=== PATIENT | male | born 1995 | race Caucasian/White ===

== ENCOUNTER 2024-12-26 12:32 | Day surgery (SDC) | payer BC, SELFPAY ==
[2024-12-26] VITALS (7 sets, daily range): BP systolic 129–177; BP diastolic 68–100; PULSE 73–115; RESP 16–24; TEMP 36.3–36.7; O2SAT 93–98; BMI 35.9
--- NOTE | 2024-12-26 12:36 | ECG_ITS ---
Test Reason : CHECH QTC Blood Pressure : */* mmHG Vent. Rate : 89 BPM Atrial Rate : 89 BPM P-R Int : 136 ms QRS Dur : 98 ms QT Int : 350 ms P-R-T Axes : 34 47 -5 degrees QTcB Int : 425 ms Normal sinus rhythm with sinus arrhythmia Incomplete right bundle branch block T wave abnormality, consider inferior ischemia Abnormal ECG No previous ECGs available Referred By: Luis Antonio Ndiaye Electronically Signed By: Russ Gao
--- NOTE | 2024-12-26 12:36 | ED.GENADULT ---
HPI - General Adult General Chief complaint: General Medical Stated complaint: Food Stuck in Esophagus Time Seen by Provider: 12/26/24 13:02 Source: patient, RN notes reviewed and old records reviewed Mode of arrival: ambulatory Limitations: no limitations History of Present Illness ED Provider: Eliazar [facility] narrative: Patient is a 29-year-old male presenting to the emergency department with complaint of foreign body to esophagus. States he was eating steak approximately 30 minutes prior to arrival when a piece was stuck in his throat. He has been unable to swallow any food or drink since that time, is unable to manage his saliva. He is currently spitting into a bag. Denies any history of similar symptoms. Denies any vomiting. Denies shortness of breath or difficulty breathing. When asked where he feels discomfort, patient points to upper chest area. MD complaint: esophageal foreign body Onset (ago): minute(s) Related Data Allergies Allergy/AdvReac Type Severity Reaction Status Date / Time peas Allergy Unknown Verified 12/26/24 12:36 Review of Systems Review of Systems: As per HPI Yes all other systems are reviewed and are negative Constitutional: Constitutional: Reports as per HPI [facility] Social History Social History Advance Directives: No Advance Directives Information Provided: No Do you have a plan to hurt others: No Plan Physical Exam ED Vital Signs: Vital Signs - 24 hr 12/26/24 12:34 12/26/24 14:22 12/26/24 14:24 Temperature 98 F 98.1 F Pulse Rate 115 H 88 88 Respiratory Rate 19 16 Blood Pressure 177/100 H 136/78 136/78 Pulse Oximetry 98 97 Oxygen Delivery Method Room Air Room Air 12/26/24 14:40 12/26/24 16:02 Temperature 97.7 F Pulse Rate 73 102 H Respiratory Rate 16 24 H Blood Pressure 133/82 129/78 Pulse Oximetry 95 93 Oxygen Delivery Method Room Air Room Air BMI result Body Mass Index 35.9 Vital signs have been reviewed and appear to be correct. Blood pressure elevated. Heart rate mildly tachycardic. Respiratory rate normal. Temperature normal. Oxygen saturation normal. Const General: cooperative, healthy appearing, alert and awake Orientation/consciousness: oriented to person, oriented to place, oriented to time and patient oriented x3 Limitations: no limitations HENMT Head: Yes normocephalic and Yes atraumatic Ears: external ears normal General nose exam: Normal external nose present Face and sinus: Yes face symmetric Mouth: Normal oral and palatal mucosa present, lip normal, tongue normal, oropharynx normal, moist mucous membranes and other (unable to swallow saliva, spitting into bag) Throat: Yes posterior oropharynx normal and Yes uvula midline Eyes Pupils: Equal, round and reactive pupils present Neck Neck: Yes normal visual inspection and Yes supple Resp Effort & Inspection: normal respiratory effort and able to speak in complete sentences Auscultation: clear to auscultation bilaterally Cardio Rate: regular rate Rhythm: regular rhythm Heart sounds: S1 normal heart sound present and S2 normal heart sound present GI Palpation (GI): Soft to palpation and nontender Auscultation: normoactive bowel sounds General: Yes no CVA tenderness Back/Spine/Pelvis Back: no CVA tenderness Skin General skin exam: elasticity normal and turgor normal Neuro General: oriented to person, oriented to place, oriented to time, patient oriented x3, moves all extremities, no focal motor deficits and CN's II-XI intact bilaterally Cranial nerves: Yes Equal, round and reactive pupils present Cognition (Neuro): normal cognition Extrem General: Yes full ROM, Yes no pedal edema and Yes no calf tenderness Psych Mental Status: mental status grossly normal Affect: normal affect Thought process: Normal thought process present Course Course Course Narrative: RME, this is a rapid medical exam performed by Ruben Ndiaye please refer to primary provider for complete H&P- 29-year-old male presents for evaluation of a food bolus. He reports he was chewing a piece of steak and feel it slowly got stuck. He is unable to eat or drink anything, he is spitting out his saliva because he can not swallow his secretions. He is mildly hypotensive plan for basic labs and glucagon administration Reevaluation(s) Reevaluation #1: Case discussed with Dr. Pickens, she recommends SL NTG if glucagon unsuccessful. Time: 13:34 Reevaluation #2: No change after glucagon or nitroglycerin. Dr. Pickens updated. Time: 14:18 Reevaluation #3: Patient to OR at this time. Time: 15:29 Medications Administered Discontinued Medications Generic Name Dose Route Start Last Admin Trade Name Freq PRN Reason Stop Dose Admin Glucagon 1 mg 12/26/24 12:36 12/26/24 13:33 Glucagon Hcl 1 Mg Vial IVPUSH 12/26/24 12:37 1 mg ONCE ONE Administration Nitroglycerin 0.4 mg 12/26/24 13:57 12/26/24 14:24 Nitroglycerin 0.4 Mg Tab.Subl SUBLINGUAL 12/26/24 13:58 0.4 mg ONCE ONE Administration Medical Decision Making Medical Decision Making [facility] Narrative: Patient is a 29-year-old male presenting to the emergency department with complaint of foreign body to esophagus. On exam patient is awake, A+Ox3, tachycardic, BP elevated, VS otherwise WNL, afebrile, normal neurological exam without focal deficits, physical exam findings as above. Given reported symptoms and physical exam findings, initial differential includes but is not limited to esophageal food bolus impaction, esophageal stricture. Labs unremarkable. Patient medicated with glucagon ordered by triage provider with little effect. See course for remainder of clinical decision making. Differential Diagnosis Differential Diagnoses: The differential diagnosis associated with the presentation includes As per [facility] Admission/Observation Consideration of admission/observation: Escalation of care including admission/observation considered Patient would have been admitted to the hospital had their work up had any findings where hospital admission was appropriate and their clinical presentation warranted hospital admission. Consult Healthcare Provider Management of the patient was discussed with: [employer] Operator (Dr. Pickens) Lab Data [facility] Lab Attestation statement: I reviewed the patient's lab results. As per [facility] 12/26/24 13:22 12/26/24 13:22 Labs: Lab Results 12/26/24 12/26/24 Range/Units 13:22 14:26 WBC 6.8 (4.8-10.8) X10*3/uL RBC 5.25 (4.60-5.80) X10*6/uL Hgb 16.5 (14.0-18.0) g/dl Hct 45.1 (42.0-52.0) % MCV 85.9 (80.0-98.0) fL MCH 31.4 (27.0-33.0) pg MCHC 36.6 H (31.0-36.0) g/dl RDW 11.9 (11.0-16.0) % Plt Count 251 (160-400) X10*3/uL MPV 10.2 (9.4-12.4) fL Immature Gran % (Auto) 0.4 (0.0-0.4) % Neut % (Auto) 64.6 (45-73) % Lymph % (Auto) 22.2 (20-40) % [place] % (Auto) 8.4 (2-11) % Eos % (Auto) 3.7 (0-4) % Baso % (Auto) 0.7 (0-2) % Lymph # (Auto) 1.5 (1.2-4.9) X10*3/uL [place] # (Auto) 0.6 (0.1-1.2) X10*3/uL Eos # (Auto) 0.3 (0.0-0.4) X10*3/uL Baso # (Auto) 0.1 (0.0-0.2) X10*3/uL Abs Immat Gran (auto) 0.03 (0.00-0.03) X10*3/uL Absolute Neuts (auto) 4.4 (2.0-8.3) x10*3/uL Absolute Nucleated RBC 0.000 (0.0-0.012) X10*3/uL Nucleated RBC % (auto) 0.0 (0.0-0.2) /100WBC PT 11.3 (10.9-12.4) SEC INR 1.0 (0.9-1.1) Sodium 142 (135-145) mmol/L Potassium 4.0 (3.3-5.1) mmol/L Chloride 107 (96-108) mmol/L Carbon Dioxide 24 (22-29) mmol/L Anion Gap 15 (12-20) BUN 11 (9-16) mg/dL Creatinine 0.80 (0.5-1.4) mg/dL Estim Creat Clear Calc 174.9 Estimated GFR > 60 Random Glucose 96 (60-115) mg/dL Calcium 9.8 (8.4-10.2) mg/dL Total Bilirubin 0.7 (0.0-1.0) mg/dL AST 42 H (5-37) U/L ALT 73 H (0-40) U/L Alkaline Phosphatase 80 (39-117) U/L Total Protein 7.8 (6.5-8.0) g/dL Albumin 5.2 H (3.5-5.0) g/dL Lipase 10 (8-78) U/L External Record Review External record reviewed: Inpatient record, Office record and Outpatient record Critical Care Time Critical Care Time Critical Care Time: Yes Total Critical Care Time: 37 Attestation: I have personally provided critical care time exclusive of time spent on separately billable procedures. Time includes review of lab data, radiology results, discussion with consultants, and monitoring for potential decompensation. Intervention performed as documented. Discharge Plan Discharge Clinical Impression: Esophageal obstruction due to food impaction Patient Disposition: Home, Self-Care Discharge Date/Time: 12/26/24 16:02
[2024-12-26 13:26] LABS: MANUAL DIFF FLAG NO
[2024-12-26 13:28] LABS: Basophils Absolute Auto 0.1 X10*3/uL (0.0-0.2); Basophils Percent Auto 0.7 % (0-2); Eosinophils Absolute Auto 0.3 X10*3/uL (0.0-0.4); Eosinophils Percent Auto 3.7 % (0-4); Hematocrit 45.1 % (42.0-52.0); Hemoglobin 16.5 g/dl (14.0-18.0); Imm Gran Abs Auto 0.03 X10*3/uL (0.00-0.03); Imm Gran Pct Auto 0.4 % (0.0-0.4); Lymphocytes Absolute Auto 1.5 X10*3/uL (1.2-4.9); Lymphocytes Percent Auto 22.2 % (20-40); Mean Corpuscular HGB Conc 36.6 g/dl (31.0-36.0); Mean Corpuscular Hemoglobin 31.4 pg (27.0-33.0); Mean Corpuscular Volume 85.9 fL (80.0-98.0); Mean Platelet Volume 10.2 fL (9.4-12.4); Monocytes Absolute Auto 0.6 X10*3/uL (0.1-1.2); Monocytes Percent Auto 8.4 % (2-11); Neutrophils Absolute Auto 4.4 x10*3/uL (2.0-8.3); Neutrophils Percent Auto 64.6 % (45-73); Platelet Count 251 X10*3/uL (160-400); Red Blood Count 5.25 X10*6/uL (4.60-5.80); Red Cell Distribution Width 11.9 % (11.0-16.0); White Blood Count 6.8 X10*3/uL (4.8-10.8)
[2024-12-26] MEDS: glucagon HCL 1 MG VIAL IVPUSH (13:33)
[2024-12-26 13:43] LABS: Alanine Aminotransferase 73 U/L (0-40); Albumin Level 5.2 g/dL (3.5-5.0); Alkaline Phosphatase 80 U/L (39-117); Anion Gap 15 (12-20); Aspartate Amino Transferase 42 U/L (5-37); Bilirubin Total 0.7 mg/dL (0.0-1.0); Blood Urea Nitrogen 11 mg/dL (9-16); Calcium 9.8 mg/dL (8.4-10.2); Carbon Dioxide 24 mmol/L (22-29); Chloride 107 mmol/L (96-108); Creatinine Clr Calc Pharmacy 174.9; Estimated Glomerular Filt Rate > 60; Glucose Random 96 mg/dL (60-115); Lipase 10 U/L (8-78); Sodium 142 mmol/L (135-145); Total Protein 7.8 g/dL (6.5-8.0)
--- NOTE | 2024-12-26 13:52 | PC.NURSE ---
pt has been spitting up clear mucous. No effect from glucagon at this time.
[2024-12-26] MEDS: Nitroglycerin 0.4 MG TAB.SUBL SUBLINGUAL (14:24)
[2024-12-26 14:43] LABS: Prothrombin Time 11.3 SEC (10.9-12.4)
--- NOTE | 2024-12-26 15:11 | PC.NURSE ---
report given to CHANA Muller in OR. Pt is prepped for endoscopy
--- NOTE | 2024-12-26 15:27 | P.CNGI_ITS ---
History of Present Illness Data of Consult Service Date: 12/26/24 Requesting physician: Joseline Perea Primary Care Provider: Josh English MD [facility] Reason for consult: Esophageal obstruction This is a 29-year-old gentleman with no significant past medical history who presented to the emergency room earlier this afternoon for feeling of food stuck in his esophagus. Patient reports that earlier today at noon he was eating steak when he felt a piece get stuck in his esophagus. He has been unable to take anything oral since then including his saliva. Noted to be spitting up. In the emergency room, he was given glucagon in nitroglycerin trial around 1.30 pm without any progression. Does not report any chest pain, shortness of breath. Has not had any similar symptoms in the past. CBC without any thrombocytopenia. INR normal. LFTs noted to be elevated with ALT greater than AST. Reports drinking 8-10 hard liquor drinks per week. Had rum earlier today. Review of Systems 2 Review of Systems: Yes all other systems are reviewed and are negative [facility] Social History Social History Advance Directives: No Advance Directives Information Provided: No Do you have a plan to hurt others: No Plan Meds Allergies Allergy/AdvReac Type Severity Reaction Status Date / Time peas Allergy Unknown Verified 12/26/24 12:36 Physical Exam 2 Vital Signs: Vital Signs: Last Vital Signs Temp 98.1 F 12/26/24 14:22 Pulse 73 12/26/24 14:40 Resp 16 12/26/24 14:40 BP 133/82 12/26/24 14:40 Pulse Ox 95 12/26/24 14:40 O2 Del Method Room Air 12/26/24 14:40 BMI result Body Mass Index 35.9 No apparent distress Nonicteric Abdomen soft, nondistended Alert and oriented x3 Results Labs 12/26/24 13:22 12/26/24 13:22 Labs: Short CBC 12/26/24 Range/Units 13:22 WBC 6.8 (4.8-10.8) X10*3/uL Hgb 16.5 (14.0-18.0) g/dl Hct 45.1 (42.0-52.0) % Plt Count 251 (160-400) X10*3/uL BMP 12/26/24 13:22 Sodium 142 Potassium 4.0 Chloride 107 Carbon Dioxide 24 BUN 11 Creatinine 0.80 Calcium 9.8 Liver Function 12/26/24 Range/Units 13:22 Total Bilirubin 0.7 (0.0-1.0) mg/dL AST 42 H (5-37) U/L ALT 73 H (0-40) U/L Alkaline Phosphatase 80 (39-117) U/L Albumin 5.2 H (3.5-5.0) g/dL Assessment and Plan (1) Esophageal obstruction due to food impaction: Status: Acute Plan Likely has complete esophageal obstruction due to food bolus impaction. Will arrange for urgent endoscopy. Please keep him strict NPO. Thank you for allowing me to participate in his care. Please not hesitate to reach out for any questions or concerns. Procedures Date of Service Date of Service: 12/26/24
--- NOTE | 2024-12-26 16:03 | P.CONAN_ITS ---
HPI - Anesthesia Eval Consult details Narrative: 29 yo M presenting for EGD. Admitted for food impaction. However, as he was sitting in the pre-op area, he suddenly felt like he cleared the bolus. Dr. Pickens was notified and wanted to proceed with EGD just to confirm clearance of bolus. Patient reports consumption of multiple hard alcoholic drinks per week. PMFSH Active Problems Active Problems: All Active Problems Esophageal obstruction due to food impaction (Acute) Family History Family history of problems with anesthesia: No Surgical History History of Problems with Anesthesia: No Social History Social History Advance Directives: No Advance Directives Information Provided: No Do you have a plan to hurt others: No Plan Meds Allergies Allergy/AdvReac Type Severity Reaction Status Date / Time peas Allergy Unknown Verified 12/26/24 12:36 Active Medications: Current Medications Naloxone HCl (Naloxone Hcl 0.4 Mg/Ml Vial) 0.04 mg IVPUSH Q5M PRN PRN Reason: Excessive sedation or RR < 8 Exam Exam Date and Time: 12/26/24 1520 Height,Weight and Vital Signs: Height 5 ft 10 in Weight 113.398 kg Last Vital Signs Temp 98.1 F 12/26/24 14:22 Pulse 73 12/26/24 14:40 Resp 16 12/26/24 14:40 BP 133/82 12/26/24 14:40 Pulse Ox 95 12/26/24 14:40 O2 Del Method Room Air 12/26/24 14:40 Pertinent Lab Results Pertinent Lab Results: Laboratory Tests 12/26/24 12/26/24 13:22 14:26 WBC 6.8 RBC 5.25 Hgb 16.5 Hct 45.1 MCV 85.9 MCH 31.4 MCHC 36.6 H RDW 11.9 Plt Count 251 MPV 10.2 Immature Gran % (Auto) 0.4 Neut % (Auto) 64.6 Lymph % (Auto) 22.2 [place] % (Auto) 8.4 Eos % (Auto) 3.7 Baso % (Auto) 0.7 Lymph # (Auto) 1.5 [place] # (Auto) 0.6 Eos # (Auto) 0.3 Baso # (Auto) 0.1 Abs Immat Gran (auto) 0.03 Absolute Neuts (auto) 4.4 Absolute Nucleated RBC 0.000 Nucleated RBC % (auto) 0.0 PT 11.3 INR 1.0 Sodium 142 Potassium 4.0 Chloride 107 Carbon Dioxide 24 Anion Gap 15 BUN 11 Creatinine 0.80 Estim Creat Clear Calc 174.9 Estimated GFR > 60 Random Glucose 96 Calcium 9.8 Total Bilirubin 0.7 AST 42 H ALT 73 H Alkaline Phosphatase 80 Total Protein 7.8 Albumin 5.2 H Lipase 10 Airway Mallampati Class: I TM Dist: >3cm Neck ROM: Full Loose/Missing/Broken Teeth: No (patient denies any loose or broken teeth) Heart: S1S2 Lungs: CTAB Assessment and Plan Assessment Anesthesia Assessment: Anesthesia Plan Discussed and Chart Reviewed Final Anesthetic Review Family History of Problems with Anesthesia: No History of Problems with Anesthesia: No NPO: Yes ASA Class: I and Emergency Final Preanesthetic Review: No Changes in Pt Med Stat, Meds/Allgs Chart Reviewed, Consent Obtained/Reviewed and Anes Risks/Benef Reviewed Patient Risk: Low Procedure Risk: Low Anesthetic Plan Anesthetic Plan: MAC: (Since patient appeared to have cleared food bolus in pre- op prior to procedure, decision was made to do a quick EGD under MAC to confirm. Back-up plan will be GA with ETT if food bolus is still present in the esophagus.) and Agree w/ Assess. and Plan Disposition: Standard PACU
--- NOTE | 2024-12-26 16:03 | P.OP_ITS ---
Operative Note Operative Note Date of Service: 12/26/24 Narrative: Procedure: Esophagogastroduodenoscopy Endoscopist: Crsity Pickens MD Indication: Food obstruction Anesthesia Provider: Dr Carmen Wilkins Anesthesia Type: MAC ?? EGD Procedure:?? The procedure, indications, preparation and potential complications were reviewed with the patient, who indicated understanding and gave written informed consent to proceed. A physical exam was performed. The endoscope was introduced through the mouth, and advanced to the second part of duodenum. The mucosa was carefully examined on slow withdrawal of the endoscope. The patient tolerated the procedure well. There were no immediate complications.? ? EGD Findings:? * Esophagus:? Normal mucosa noted in the entire esophagus. The Z line was at 35 cm. There was a small hiatal hernia.Middle and lower esophagus forceps biopsies were obtained to rule out eosinophilic esophagitis. * Stomach:? A fairly large piece of steak was noted in the body.. Normal mucosa was noted in the stomach. Retoflexion was performed in the cardia. * Duodenum:? Normal mucosa was noted in the whole of the examined duodenum. ? EGD Impressions:? * Normal esophagus (biopsy) * Hiatal hernia * Food in stomach * Normal duodenum ?? Recommendations:?? * Food bolus had spontaneously passed into the stomach. * Follow up pathology results * Pt advised to thoroughly chew food before swallowing. Above has been reviewed with the patient.
== END 2024-12-26 16:36 | disposition home or self-care (01) ==
LOC: HO.ED 16:01 → HO.SSS 16:02
PROVIDERS: Physician Assistant; Registered Nurse Emergency; Emergency Provider Emergency Medicine; PCP Family Medicine; Visit Provider Internal Medicine
PROC: 0DJ08ZZ Inspection of Upper Intestinal Tract, Via Natural or Artificial Opening Endoscopic (ICD-10-PCS; CPT 43235; principal; 2024-12-26 15:30)
DX: T18.2XXA Foreign body in stomach, initial encounter (principal); W44.F3XA Food entering into or through a natural orifice, initial encounter; K44.9 Diaphragmatic hernia without obstruction or gangrene; R00.0 Tachycardia, unspecified; R07.9 Chest pain, unspecified; Y93.89 Activity, other specified; Y92.9 Unspecified place or not applicable; Y99.9 Unspecified external cause status
CPT/HCPCS: 43239; 36415; 80053; 83690; 85025; 85610; 88305; 93005; 96374; 99283; 99285; J0330; J1610; J2003; J2704

== ENCOUNTER → 2024-12-26 12:36 | Outpatient (BNV) | payer BC, SELFPAY | PROVIDERS: Emergency Provider Emergency Medicine; PCP Family Medicine; Visit Provider Internal Medicine Cardiovascular Disease | DX: I45.10 Unspecified right bundle-branch block (principal); I49.9 Cardiac arrhythmia, unspecified | CPT/HCPCS: 93010 ==

== ENCOUNTER → 2024-12-26 16:01 | Outpatient (BNV) | payer BC, SELFPAY | PROVIDERS: Emergency Provider Emergency Medicine; PCP Family Medicine; Visit Provider Internal Medicine | DX: T18.128A Food in esophagus causing other injury, initial encounter (principal); K44.9 Diaphragmatic hernia without obstruction or gangrene | CPT/HCPCS: 43239; 99283 ==